=== PATIENT | male | born 1990 | race Caucasian/White ===

== ENCOUNTER 2021-08-27 16:04 | Emergency (ER) | payer OTHER, SELFPAY ==
[2021-08-27 16:15] VITALS: BP 144/88; PULSE 60; RESP 16; TEMP 37.3; O2SAT 100
--- NOTE | 2021-08-27 16:34 | ED.UPPEXIN ---
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 Patient states he has a prior shoulder dislocation and rotator cuff injury. Today while at work he lifted a heavy object with his right hand and placed it on his right shoulder. The inertia of the larger water container pulled his shoulder back externally rotating it forcibly; he complains of mild pain mostly at the scapular lower half. No numbness/weakness, neck pain, bleeding, visible deformity, symptoms are mild worse with activity at endpoints. Related Data Home Medications Medication Instructions Recorded Confirmed clonazepam [Klonopin] 0.5 mg PO HS 08/27/21 08/27/21 mirtazapine 15 mg PO DAILY 08/27/21 08/27/21 Allergies Allergy/AdvReac Type Severity Reaction Status Date / Time No Known Allergies Allergy Verified 08/27/21 16:15 Review of Systems Review of Systems: The patient has been informed that they may have pre-hypertension or Hypertension based on a BP reading in the department. I recommend that the patient call the primary care provider listed on their discharge instructions or a physician of their choice this week to arrange follow up for further evaluation of possible pre-hypertension or Hypertension General/Constitutional: No weight loss,fever Eyes: N0: Redness,discharge Ears/Nose/Throat: No: Epistaxis,ear discharge Respiratory: Denies: Hemoptysis Gastrointestinal: No Vomiting, Bleeding-rectal Skin: No Lumps, eruption Neurologic: No Focal Weakness,Sz Hematologic: Denies: Petechiae/Purpura Psychiatric: No: Suicida ideationl All Other Systems: Reviewed and Negative PMFSH Comments At time of signature, agree with nursing past medical, surgical, social and family history. There is no relevant family history pertinent to the presenting complaint Exam Narrative: General Appearance: Well appearing, Conjunctiva clear Ears: External ear normal, Auditory canal normal Nose: Normal nose, Nares clear Mouth/Throat: Normal appearing, Normal lips, Supple Respiratory: Airway patent, No respiratory distress MS: Normal strength (mostly intact, almost unlimited limited IR/ER, flexion/extension ), Tenderness (infraspinatus with mild decreased ROM), no swelling, Other NO drop arm, negative impingement, Neer tests Skin: Warm, Dry, Normal color Neurological: A&O x3, , Normal affect Course Vital Signs Vital signs: Vital Signs Temperature 99.1 F 08/27/21 16:15 Pulse Rate 60 08/27/21 16:15 Respiratory Rate 16 08/27/21 16:15 Blood Pressure 144/88 H 08/27/21 16:15 Pulse Oximetry 100 08/27/21 16:15 Temperature 99.1 F 08/27/21 16:15 Pulse Rate 60 08/27/21 16:15 Respiratory Rate 16 08/27/21 16:15 Blood Pressure 144/88 H 08/27/21 16:15 Pulse Oximetry 100 08/27/21 16:15 Discharge Plan Discharge Clinical Impression: Rotator cuff strain Qualifiers: Encounter type: initial encounter Laterality: right Qualified Code(s): S46.011A - Strain of muscle(s) and tendon(s) of the rotator cuff of right shoulder, initial encounter Patient Disposition: Home, Self-Care Condition: Stable Instructions: Rotator Cuff Injury (ED) Additional Instructions: 10 Best Rotator Cuff Exercises: Beginner to Advanced Strengthening by therapists Praveen [email or web address] Prescriptions: New tramadol 50 mg tablet 50 - 75 mg PO DAILY PRN (Reason: pain) Qty: 30 RF: 0 No Action mirtazapine 15 mg tablet 15 mg PO DAILY RF: 0 clonazepam [Klonopin] 0.5 mg Tablet 0.5 mg PO HS RF: 0 Follow-up/Referrals: [facility] [place], [Primary Care Provider] -
== END 2021-08-27 16:43 | disposition home or self-care (01) ==
PROVIDERS: Emergency Provider Emergency Medicine
DX: S46.011A Strain of muscle(s) and tendon(s) of the rotator cuff of right shoulder, initial encounter (principal); X50.0XXA Overexertion from strenuous movement or load, initial encounter; Y99.0 Civilian activity done for income or pay
CPT/HCPCS: 99203; G0463